=== PATIENT | female | born 1990 | race Caucasian/White ===

== ENCOUNTER → 2017-08-19 | Outpatient (CLI) | payer OTHER ==
[~2017-08-19] MED LIST: ALBU90OI INH; CEPH500 PO; CIPR500 PO; CITA20 PO; CLON.5 PO; DOCU100 PO; ESOM20 PO; FAMO40 PO; Ferrous Sulfat325 MG; HYDACE5 PO; HYDGUAL120 PO; HYDMOR2 PO; HYDROCORTISON28.4 G3 TOP; HYOS0.375T PO; IBUP800 PO; LORA1 PO; METO10; METO10 PO; METO5A PO; MULVITMINE PO; Macrobid 100 M100 MG PO; OMEP20ER PO; ONDA4 PO; ONDA4ODT MM; ONDA8 PO; ONDA8ODT MM; OXYACE5T PO; POTA20PAC PO; PROC10 PO; PROC5 PO; PROM25 PO; PROM25S PR; PROM50S PR; Percocet 5-3251 EACH PO; RANI150 PO; RXOXYACE PO; RXPROM25 PO; Ultram50 MG PO; VENL150ER PO; ZOFRAN; Zofran Odt4 MG SL; birth control pills
== END | disposition home or self-care (01) ==
LOC: LAB 15:03
DX: Z34.83 Encounter for supervision of other normal pregnancy, third trimester (principal); Z3A.35 35 weeks gestation of pregnancy
CPT/HCPCS: 87081; 87653

== ENCOUNTER 2017-09-03 21:30 | Inpatient (IN) | payer OTHER ==
[~2017-09-03] VITALS: Ht 157.5 cm; Wt 99.0 kg
[~2017-09-03 21:30] MED LIST changes: -DOCU100 PO; -Ferrous Sulfat325 MG; -Percocet 5-3251 EACH PO
[2017-09-03 23:56] LABS: BASOPHILS ABSOLUTE AUTO 0.05 K/mm3 (0.00-0.23); BASOPHILS PERCENT AUTO 0 % (0-2); EOSINOPHILS PERCENT AUTO 0 % (0-6); Hematocrit 35.6 % (33.0-51.0); Hemoglobin 11.4 g/dL (11.5-16.0); IMMATURE GRAN ABSOLUTE AUTO 0.58 K/mm3 (0.00-0.10); IMMATURE GRAN PERCENT AUTO 2 % (0-1); LYMPHOCYTES ABSOLUTE AUTO 1.06 K/mm3 (0.84-5.20); LYMPHOCYTES PERCENT AUTO 3 % (21-46); MONOCYTES ABSOLUTE AUTO 1.27 K/mm3 (0.16-1.47); MONOCYTES PERCENT AUTO 4 % (4-13); Mean Corpuscular Volume 78 fL (80-100); Mean Platelet Volume 10.8 fL (9.1-12.4); NEUTROPHILS ABSOLUTE AUTO 33.15 K/mm3 (1.96-9.15); NEUTROPHILS PERCENT AUTO 92 % (41-73); Platelet Count 344 K/mm3 (150-400); RDW Coefficient Variation 15.9 % (11.7-14.2); RDW Standard Deviation 45.1 fL (35.1-46.3); Red Blood Cell Count 4.56 M/mm3 (3.80-5.20); White Blood Cell Count 36.11 K/mm3 (4.00-11.30)
[2017-09-05 05:24] LABS: Hematocrit 28.6 % (33.0-51.0); Hemoglobin 9.1 g/dL (11.5-16.0); Mean Corpuscular HGB 25.1 pg (26.0-34.0); Mean Corpuscular HGB Conc 31.8 g/dL (31.5-36.5); Mean Corpuscular Volume 79 fL (80-100); Mean Platelet Volume 10.4 fL (9.1-12.4); Platelet Count 259 K/mm3 (150-400); RDW Coefficient Variation 15.9 % (11.7-14.2); RDW Standard Deviation 45.8 fL (35.1-46.3); Red Blood Cell Count 3.62 M/mm3 (3.80-5.20); White Blood Cell Count 22.16 K/mm3 (4.00-11.30)
[2017-09-05] MEDS ORDERED: Ferrous Sulfat325 MG (11:30)
[2017-09-05] MEDS ORDERED: IBUP800 PO (11:31)
[2017-09-05] MEDS ORDERED: DOCU100 PO (11:31)
[2017-09-05] MEDS ORDERED: Percocet 5-3251 EACH PO (11:31)
== END 2017-09-05 12:30 | disposition home or self-care (01) | DRG 775 ==
LOC: OBS 21:30 → BC 21:30 → OBS 23:17 → BC 23:18
PROVIDERS: Obstetrics & Gynecology
PROC: 10E0XZZ Delivery of Products of Conception, External Approach (ICD-10-PCS; principal; 2017-09-04)
PROC: 0KQM0ZZ Repair Perineum Muscle, Open Approach (ICD-10-PCS; 2017-09-04)
PROC: 10907ZC Drainage of Amniotic Fluid, Therapeutic from Products of Conception, Via Natural or Artificial Opening (ICD-10-PCS; 2017-09-04)
DX: O34.211 Maternal care for low transverse scar from previous cesarean delivery (principal); Z68.41 Body mass index [BMI] 40.0-44.9, adult; O70.1 Second degree perineal laceration during delivery; Z37.0 Single live birth; Z3A.38 38 weeks gestation of pregnancy
CPT/HCPCS: 36415; 51702; 81003; 85025; 85027; 93005; 93010; J2405; J2590; J2765; J3010; J7120

== ENCOUNTER 2022-09-12 00:56 | Emergency (ER) | payer OTHER ==
[~2022-09-12] VITALS: Ht 157.5 cm; Wt 104.3 kg
[~2022-09-12 00:56] MED LIST changes: +CAL MAG PO; +DOCU100 PO; +Ferrous Sulfat325 MG; +HYDHCL25 PO; +Percocet 5-3251 EACH PO; +SERT50 PO
[2022-09-12] MEDS ORDERED: HYDR1TAB94 PO (04:35)
[2022-09-12] MEDS ORDERED: DOC250 PO (04:35)
== END 2022-09-12 04:52 | disposition home or self-care (01) ==
LOC: ER 00:56
DX: S52.502A Unspecified fracture of the lower end of left radius, initial encounter for closed fracture (principal); W19.XXXA Unspecified fall, initial encounter; Z87.891 Personal history of nicotine dependence
CPT/HCPCS: 25605; 36415; 73100; 73110; 96374-59; 99152; 99284-25; A9270; J2405; J2704; J3010; J7030